=== PATIENT | female | born 1955 | race Caucasian/White ===

== ENCOUNTER 2025-07-21 12:17 | Inpatient (IN) ==
[2025-07-21] MEDS: ONDANSETRON 4 MG/2 ML VIAL IV ONE (12:57)
[2025-07-21] MEDS: 0.9 % SODIUM CHLORIDE 1,000 ML IV ONE (12:58)
[2025-07-21] MEDS: HYDROmorphone 0.5 MG/0.5 ML SYRINGE IV PRN (12:58)
[2025-07-21 13:35] LABS: ALT/SGPT 19 U/L (<40); AST/SGOT 23 U/L (<32); Albumin 3.2 gm/dL (3.2-5.2); Albumin/Globulin Ratio 0.9 (1.0-2.3); Alkaline Phosphatase 113 U/L (39-117); Anion Gap 16.0 (8.0-16.0); Bilirubin,Total 0.5 mg/dL (0.1-1.0); Blood Urea Nitrogen 28 mg/dL (8-23); Calcium 9.3 mg/dL (8.6-10.4); Carbon Dioxide 23 mmol/L (22-30); Chloride 96 mmol/L (96-108); Globulin 3.7 gm/dL (2.2-3.7); Glucose 116 mg/dL (70-105); Potassium 4.1 mmol/L (3.3-5.1); Sodium 135 mmol/L (133-145)
[2025-07-21 13:38] LABS: Basophils # (Auto) 0 K/mcL (0.00-0.30); Basophils % (Auto) 0 % (0.0-2.0); Eosinophils # (Auto) 0.01 K/mcL (0.00-0.70); Eosinophils % (Auto) 0.1 % (0.0-7.0); Hematocrit 49.0 % (34.1-44.9); Hemoglobin 16.7 g/dL (11.2-15.7); Lymphocytes # (Auto) 0.55 K/mcL (1.50-4.80); Lymphocytes % (Auto) 3.4 % (15.5-49.0); Mean Corpuscular HGB Conc 34.1 g/dL (31.0-36.0); Monocytes # (Auto) 0.56 K/mcL (0.10-0.90); Monocytes % (Auto) 3.5 % (1.0-12.0); Neutrophils % (Auto) 92.4 % (38.0-78.0); Platelet Count 189 K/mcL (140-440); RBC 5.27 M/mcL (3.59-5.38); WBC 16.0 K/mcL (4.5-11.0)
[2025-07-21] MEDS: PIPERACILLIN SODIUM/TAZOBACTAM 3.375 GM in DEXTROSE 5% IN WATER 50 ML IV ONE (14:25)
[2025-07-21] MEDS ORDERED: fentaNYL 100 MCG/2 ML VIAL ONE ×2 (14:39→16:32)
[2025-07-21] MEDS ORDERED: SUGAMMADEX SODIUM 200 MG/2 ML VIAL IV ONE (14:40)
[2025-07-21] MEDS ORDERED: PROPOFOL 200 MG/20 ML VIAL IV ONE (14:40)
[2025-07-21 14:41] LABS: INR 1.1 (0.9-1.1); Prothrombin Time 14.9 sec (11.9-14.5)
[2025-07-21 14:52] LABS: Bilirubin,Urine NEGATIVE (Negative); Color,Urine YELLOW; Glucose,Urine (UA) NEGATIVE (Negative); Ketones,Urine TRACE mg/dL (Negative); Leukocyte Esterase,Urine NEGATIVE /uL (Negative); Mucus,Urine Few /hpf; PH,Urine 6.0 (5.0-9.0); Protein,Urine TRACE mg/dL (Negative); Specific Gravity,Urine <= 1.005 (1.000-1.035); Urobilinogen,Urine 0.2 mg/dL
[2025-07-21] MEDS ORDERED: MAGNESIUM SULFATE 2 GM/50 ML BAG IV ONE (15:17)
[2025-07-21] MEDS ORDERED: METOPROLOL TARTRATE 5 MG/5 ML VIAL IV ONE ×2 (15:36→17:23)
[2025-07-21] MEDS ORDERED: PHENYLephrine 1 MG/10 ML SYRINGE (ANEST) ONE ×2 (15:48→17:42)
[2025-07-21] MEDS: ALBUMIN HUMAN 25 GM/100 ML BAG IV ONE (16:00)
[2025-07-21] MEDS ORDERED: ESMOLOL 100 MG/10 ML VIAL IV ONE (16:19)
[2025-07-21] MEDS ORDERED: DEXMEDETOMIDINE HCL 200 MCG/2 ML VIAL ONE (16:30)
[2025-07-21] MEDS ORDERED: 0.9 % SODIUM CHLORIDE 100 ML IV ONE (16:30)
[2025-07-21] MEDS ORDERED: HYDROmorphone 0.5 MG/0.5 ML SYRINGE ONE (16:32)
[2025-07-21] MEDS ORDERED: VASOPRESSIN 20 UNIT/ML VIAL ONE (16:44)
[2025-07-21] MEDS ORDERED: FAMOTIDINE/PF 20 MG/2 ML VIAL IV ONE (16:45)
[2025-07-21] MEDS ORDERED: ROPIVACAINE HCL/PF 30 ML VIAL IJ ONE (17:25)
[2025-07-21] MEDS ORDERED: PROMETHAZINE 25 MG/ML VIAL IV PRN (18:57)
[2025-07-21] MEDS ORDERED: NALOXONE HCL 0.4 MG/ML VIAL IV PRN (18:57)
[2025-07-21 19:55] LABS: ALT/SGPT 20 U/L (<40); AST/SGOT 32 U/L (<32); Albumin 2.7 gm/dL (3.2-5.2); Albumin/Globulin Ratio 1.1 (1.0-2.3); Alkaline Phosphatase 80 U/L (39-117); Anion Gap 10.0 (8.0-16.0); Bilirubin,Total 0.8 mg/dL (0.1-1.0); Blood Urea Nitrogen 25 mg/dL (8-23); Calcium 8.0 mg/dL (8.6-10.4); Carbon Dioxide 21 mmol/L (22-30); Chloride 103 mmol/L (96-108); Globulin 2.4 gm/dL (2.2-3.7); Glucose 118 mg/dL (70-105); Potassium 4.8 mmol/L (3.3-5.1); Sodium 134 mmol/L (133-145)
[2025-07-21] MEDS: AMIODARONE 360 MG in PREMIX 1 BAG IV SCH (20:20)
[2025-07-21] MEDS: 0.9 % SODIUM CHLORIDE 1,000 ML IV SCH (20:22)
[2025-07-21] MEDS: DILTIAZEM 25 MG/5 ML VIAL IV ONE (20:23)
[2025-07-21] MEDS: FAMOTIDINE/PF 20 MG/2 ML VIAL IV SCH (20:24)
[2025-07-21] MEDS: AMIODARONE 360 MG/200 ML BAG IV ONE (21:05)
[2025-07-21] MEDS: PIPERACILLIN SODIUM/TAZOBACTAM 3.375 GM in DEXTROSE 5% IN WATER 100 ML IV SCH (22:17)
[2025-07-21] MEDS: 0.9 % SODIUM CHLORIDE 10 ML SYRINGE IV SCH (22:18)
[2025-07-22] MEDS: AMIODARONE 360 MG in PREMIX 1 BAG IV SCH (01:50)
[2025-07-22] MEDS: AMIODARONE 360 MG/200 ML BAG IV ONE ×2 (03:16→14:14)
[2025-07-22 06:08] LABS: Hematocrit 41.2 % (34.1-44.9); Hemoglobin 13.6 g/dL (11.2-15.7); Mean Corpuscular HGB Conc 33.0 g/dL (31.0-36.0); Platelet Count 177 K/mcL (140-440); RBC 4.27 M/mcL (3.59-5.38); WBC 13.7 K/mcL (4.5-11.0)
[2025-07-22 06:45] LABS: ALT/SGPT 21 U/L (<40); AST/SGOT 31 U/L (<32); Albumin 2.7 gm/dL (3.2-5.2); Albumin/Globulin Ratio 1.0 (1.0-2.3); Alkaline Phosphatase 79 U/L (39-117); Anion Gap 12.0 (8.0-16.0); Bilirubin,Total 0.9 mg/dL (0.1-1.0); Blood Urea Nitrogen 22 mg/dL (8-23); Calcium 7.9 mg/dL (8.6-10.4); Carbon Dioxide 21 mmol/L (22-30); Chloride 105 mmol/L (96-108); Globulin 2.7 gm/dL (2.2-3.7); Glucose 112 mg/dL (70-105); Potassium 4.2 mmol/L (3.3-5.1); Sodium 138 mmol/L (133-145)
[2025-07-22] MEDS: DILTIAZEM 125 MG in DEXTROSE 5% IN WATER 100 ML IV SCH (07:05)
[2025-07-22 08:47] LABS: RBC Morphology NORMAL (Normal)
[2025-07-22] MEDS ORDERED: ALBUTEROL SULFATE 2.5 MG/3 ML NEBULIZER NEB PRN (09:00)
[2025-07-22] MEDS: ENOXAPARIN 40 MG/0.4 ML SYRINGE SQ SCH (09:09)
[2025-07-22] MEDS: ACETAMINOPHEN 1,000 MG/100 ML BAG IV SCH (12:01)
[2025-07-23 05:54] LABS: Basophils # (Auto) 0 K/mcL (0.00-0.30); Basophils % (Auto) 0 % (0.0-2.0); Eosinophils # (Auto) 0 K/mcL (0.00-0.70); Eosinophils % (Auto) 0 % (0.0-7.0); Hematocrit 40.1 % (34.1-44.9); Hemoglobin 13.4 g/dL (11.2-15.7); Lymphocytes # (Auto) 0.86 K/mcL (1.50-4.80); Lymphocytes % (Auto) 5.7 % (15.5-49.0); Mean Corpuscular HGB Conc 33.4 g/dL (31.0-36.0); Monocytes # (Auto) 0.55 K/mcL (0.10-0.90); Monocytes % (Auto) 3.6 % (1.0-12.0); Neutrophils % (Auto) 90.1 % (38.0-78.0); Platelet Count 181 K/mcL (140-440); RBC 4.19 M/mcL (3.59-5.38); WBC 15.2 K/mcL (4.5-11.0)
[2025-07-23 06:20] LABS: ALT/SGPT 24 U/L (<40); AST/SGOT 36 U/L (<32); Albumin 2.4 gm/dL (3.2-5.2); Albumin/Globulin Ratio 0.9 (1.0-2.3); Alkaline Phosphatase 85 U/L (39-117); Anion Gap 10.0 (8.0-16.0); Bilirubin,Direct 0.5 mg/dL (<0.3); Bilirubin,Total 0.7 mg/dL (0.1-1.0); Blood Urea Nitrogen 35 mg/dL (8-23); Calcium 7.7 mg/dL (8.6-10.4); Carbon Dioxide 20 mmol/L (22-30); Chloride 109 mmol/L (96-108); Globulin 2.8 gm/dL (2.2-3.7); Glucose 94 mg/dL (70-105); Phosphorous 3.2 mg/dL (2.5-4.5); Potassium 4.2 mmol/L (3.3-5.1); Sodium 139 mmol/L (133-145); Triglycerides 80 mg/dL (<150); Uric Acid 3.3 mg/dL (2.5-8.0)
[2025-07-24 06:34] LABS: Basophils # (Auto) 0 K/mcL (0.00-0.30); Basophils % (Auto) 0 % (0.0-2.0); Eosinophils # (Auto) 0.02 K/mcL (0.00-0.70); Eosinophils % (Auto) 0.2 % (0.0-7.0); Hematocrit 45.0 % (34.1-44.9); Hemoglobin 14.7 g/dL (11.2-15.7); Lymphocytes # (Auto) 1.23 K/mcL (1.50-4.80); Lymphocytes % (Auto) 9.3 % (15.5-49.0); Mean Corpuscular HGB Conc 32.7 g/dL (31.0-36.0); Monocytes # (Auto) 0.41 K/mcL (0.10-0.90); Monocytes % (Auto) 3.1 % (1.0-12.0); Neutrophils % (Auto) 86.8 % (38.0-78.0); Platelet Count 204 K/mcL (140-440); RBC 4.67 M/mcL (3.59-5.38); WBC 13.3 K/mcL (4.5-11.0)
[2025-07-24 06:46] LABS: ALT/SGPT 28 U/L (<40); AST/SGOT 39 U/L (<32); Albumin 2.4 gm/dL (3.2-5.2); Albumin/Globulin Ratio 0.8 (1.0-2.3); Alkaline Phosphatase 101 U/L (39-117); Anion Gap 8.0 (8.0-16.0); Bilirubin,Direct 0.3 mg/dL (<0.3); Bilirubin,Total 0.4 mg/dL (0.1-1.0); Blood Urea Nitrogen 35 mg/dL (8-23); Calcium 7.7 mg/dL (8.6-10.4); Carbon Dioxide 22 mmol/L (22-30); Chloride 111 mmol/L (96-108); Globulin 3.0 gm/dL (2.2-3.7); Glucose 71 mg/dL (70-105); Phosphorous 2.6 mg/dL (2.5-4.5); Potassium 4.0 mmol/L (3.3-5.1); Sodium 141 mmol/L (133-145); Triglycerides 126 mg/dL (<150); Uric Acid 3.1 mg/dL (2.5-8.0)
[2025-07-24] MEDS: PYRIDOSTIGMINE BROMIDE 10 MG/2 ML AMPUL IV SCH (20:13)
[2025-07-24] MEDS: ATORVASTATIN 40 MG TABLET PO SCH (20:13)
[2025-07-25 07:46] LABS: ALT/SGPT 27 U/L (<40); AST/SGOT 36 U/L (<32); Albumin 2.1 gm/dL (3.2-5.2); Albumin/Globulin Ratio 0.8 (1.0-2.3); Alkaline Phosphatase 92 U/L (39-117); Anion Gap 6.0 (8.0-16.0); Bilirubin,Direct 0.3 mg/dL (<0.3); Bilirubin,Total 0.4 mg/dL (0.1-1.0); Blood Urea Nitrogen 22 mg/dL (8-23); Calcium 7.3 mg/dL (8.6-10.4); Carbon Dioxide 21 mmol/L (22-30); Chloride 115 mmol/L (96-108); Globulin 2.6 gm/dL (2.2-3.7); Glucose 63 mg/dL (70-105); Phosphorous 2.3 mg/dL (2.5-4.5); Potassium 3.6 mmol/L (3.3-5.1); Sodium 142 mmol/L (133-145); Triglycerides 156 mg/dL (<150); Uric Acid 2.1 mg/dL (2.5-8.0)
[2025-07-25 08:05] LABS: Basophils # (Auto) 0 K/mcL (0.00-0.30); Basophils % (Auto) 0 % (0.0-2.0); Eosinophils # (Auto) 0.08 K/mcL (0.00-0.70); Eosinophils % (Auto) 0.7 % (0.0-7.0); Hematocrit 40.6 % (34.1-44.9); Hemoglobin 13.1 g/dL (11.2-15.7); Lymphocytes # (Auto) 0.98 K/mcL (1.50-4.80); Lymphocytes % (Auto) 8.5 % (15.5-49.0); Mean Corpuscular HGB Conc 32.3 g/dL (31.0-36.0); Monocytes # (Auto) 0.24 K/mcL (0.10-0.90); Monocytes % (Auto) 2.1 % (1.0-12.0); Neutrophils % (Auto) 88.0 % (38.0-78.0); Platelet Count 200 K/mcL (140-440); RBC 4.15 M/mcL (3.59-5.38); WBC 11.5 K/mcL (4.5-11.0)
[2025-07-25] MEDS: METOPROLOL TARTRATE 5 MG/5 ML VIAL IV SCH (08:35)
[2025-07-25] MEDS: ALBUMIN HUMAN 12.5 GM/50 ML VIAL IV ONE (12:20)
[2025-07-25] MEDS: FUROSEMIDE 40 MG/4 ML VIAL IV ONE (12:44)
[2025-07-25] MEDS: 0.9 % SODIUM CHLORIDE 1,000 ML IV SCH (16:17)
[2025-07-25] MEDS: POLYETHYLENE GLYCOL 3350 17 GM PACKET PO SCH (22:28)
[2025-07-26 05:29] LABS: Basophils # (Auto) 0 K/mcL (0.00-0.30); Basophils % (Auto) 0 % (0.0-2.0); Eosinophils # (Auto) 0.13 K/mcL (0.00-0.70); Eosinophils % (Auto) 1.3 % (0.0-7.0); Hematocrit 39.4 % (34.1-44.9); Hemoglobin 13.0 g/dL (11.2-15.7); Lymphocytes # (Auto) 1.18 K/mcL (1.50-4.80); Lymphocytes % (Auto) 12.2 % (15.5-49.0); Mean Corpuscular HGB Conc 33.0 g/dL (31.0-36.0); Monocytes # (Auto) 0.21 K/mcL (0.10-0.90); Monocytes % (Auto) 2.2 % (1.0-12.0); Neutrophils % (Auto) 83.7 % (38.0-78.0); Platelet Count 199 K/mcL (140-440); RBC 4.10 M/mcL (3.59-5.38); WBC 9.7 K/mcL (4.5-11.0)
[2025-07-26 05:53] LABS: ALT/SGPT 21 U/L (<40); AST/SGOT 32 U/L (<32); Albumin 2.2 gm/dL (3.2-5.2); Albumin/Globulin Ratio 0.9 (1.0-2.3); Alkaline Phosphatase 95 U/L (39-117); Anion Gap 7.0 (8.0-16.0); Bilirubin,Direct 0.3 mg/dL (<0.3); Bilirubin,Total 0.5 mg/dL (0.1-1.0); Blood Urea Nitrogen 15 mg/dL (8-23); Calcium 7.5 mg/dL (8.6-10.4); Carbon Dioxide 24 mmol/L (22-30); Chloride 110 mmol/L (96-108); Globulin 2.4 gm/dL (2.2-3.7); Glucose 63 mg/dL (70-105); Phosphorous 2.3 mg/dL (2.5-4.5); Potassium 3.3 mmol/L (3.3-5.1); Sodium 141 mmol/L (133-145); Triglycerides 142 mg/dL (<150); Uric Acid 2.2 mg/dL (2.5-8.0)
[2025-07-26] MEDS: METOPROLOL TARTRATE 25 MG TABLET PO SCH (21:22)
[2025-07-26] MEDS: POTASSIUM CHLORIDE 20 MEQ TABLET PO SCH (21:22)
[2025-07-27 06:33] LABS: Basophils # (Auto) 0 K/mcL (0.00-0.30); Basophils % (Auto) 0 % (0.0-2.0); Eosinophils # (Auto) 0.13 K/mcL (0.00-0.70); Eosinophils % (Auto) 1.3 % (0.0-7.0); Hematocrit 36.7 % (34.1-44.9); Hemoglobin 12.2 g/dL (11.2-15.7); Lymphocytes # (Auto) 1.11 K/mcL (1.50-4.80); Lymphocytes % (Auto) 11.3 % (15.5-49.0); Mean Corpuscular HGB Conc 33.2 g/dL (31.0-36.0); Monocytes # (Auto) 0.23 K/mcL (0.10-0.90); Monocytes % (Auto) 2.3 % (1.0-12.0); Neutrophils % (Auto) 84.4 % (38.0-78.0); Platelet Count 211 K/mcL (140-440); RBC 3.82 M/mcL (3.59-5.38); WBC 9.8 K/mcL (4.5-11.0)
[2025-07-27 07:00] LABS: ALT/SGPT 16 U/L (<40); AST/SGOT 20 U/L (<32); Albumin 2.1 gm/dL (3.2-5.2); Albumin/Globulin Ratio 0.9 (1.0-2.3); Alkaline Phosphatase 71 U/L (39-117); Anion Gap 6.0 (8.0-16.0); Bilirubin,Direct 0.3 mg/dL (<0.3); Bilirubin,Total 0.5 mg/dL (0.1-1.0); Blood Urea Nitrogen 12 mg/dL (8-23); Calcium 7.4 mg/dL (8.6-10.4); Carbon Dioxide 23 mmol/L (22-30); Chloride 109 mmol/L (96-108); Globulin 2.4 gm/dL (2.2-3.7); Glucose 79 mg/dL (70-105); Phosphorous 1.8 mg/dL (2.5-4.5); Potassium 3.7 mmol/L (3.3-5.1); Sodium 138 mmol/L (133-145); Triglycerides 155 mg/dL (<150); Uric Acid 1.9 mg/dL (2.5-8.0)
[2025-07-27] MEDS: FUROSEMIDE 40 MG/4 ML VIAL IV ONE (08:58)
[2025-07-27] MEDS: POTASSIUM PHOSPHATE 40 MEQ in DEXTROSE 5% IN WATER 500 ML IV ONE ×2 (09:37→15:39)
[2025-07-27] MEDS: ONDANSETRON 4 MG/2 ML VIAL IV PRN (11:40)
[2025-07-27] MEDS: APIXABAN 5 MG TABLET PO SCH (21:46)
[2025-07-28 06:18] LABS: Basophils # (Auto) 0.01 K/mcL (0.00-0.30); Basophils % (Auto) 0.1 % (0.0-2.0); Eosinophils # (Auto) 0.16 K/mcL (0.00-0.70); Eosinophils % (Auto) 1.5 % (0.0-7.0); Hematocrit 36.6 % (34.1-44.9); Hemoglobin 12.1 g/dL (11.2-15.7); Lymphocytes # (Auto) 1.02 K/mcL (1.50-4.80); Lymphocytes % (Auto) 9.5 % (15.5-49.0); Mean Corpuscular HGB Conc 33.1 g/dL (31.0-36.0); Monocytes # (Auto) 0.40 K/mcL (0.10-0.90); Monocytes % (Auto) 3.7 % (1.0-12.0); Neutrophils % (Auto) 84.6 % (38.0-78.0); Platelet Count 227 K/mcL (140-440); RBC 3.84 M/mcL (3.59-5.38); WBC 10.7 K/mcL (4.5-11.0)
[2025-07-28 06:49] LABS: ALT/SGPT 15 U/L (<40); AST/SGOT 22 U/L (<32); Albumin 2.1 gm/dL (3.2-5.2); Albumin/Globulin Ratio 0.8 (1.0-2.3); Alkaline Phosphatase 74 U/L (39-117); Anion Gap 6.0 (8.0-16.0); Bilirubin,Direct 0.2 mg/dL (<0.3); Bilirubin,Total 0.4 mg/dL (0.1-1.0); Blood Urea Nitrogen 9 mg/dL (8-23); Calcium 7.6 mg/dL (8.6-10.4); Carbon Dioxide 24 mmol/L (22-30); Chloride 106 mmol/L (96-108); Globulin 2.6 gm/dL (2.2-3.7); Glucose 87 mg/dL (70-105); Phosphorous 2.4 mg/dL (2.5-4.5); Potassium 4.4 mmol/L (3.3-5.1); Sodium 136 mmol/L (133-145); Triglycerides 134 mg/dL (<150); Uric Acid 1.4 mg/dL (2.5-8.0)
[2025-07-28] MEDS ORDERED: ONDANSETRON 4 MG ODT TABLET SL PRN (13:59)
[2025-07-28] MEDS ORDERED: ACETAMINOPHEN 325 MG TABLET PO PRN (13:59)
[2025-07-28] MEDS ORDERED: metroNIDAZOLE 500 MG/100 ML BAG IV SCH (14:15)
[2025-07-28] MEDS: FAMOTIDINE 20 MG TABLET PO SCH (20:30)
[2025-07-28] MEDS: CIPROFLOXACIN 500 MG TABLET PO SCH (20:30)
[2025-07-29 07:13] LABS: ALT/SGPT 17 U/L (<40); AST/SGOT 26 U/L (<32); Albumin 2.2 gm/dL (3.2-5.2); Albumin/Globulin Ratio 0.8 (1.0-2.3); Alkaline Phosphatase 79 U/L (39-117); Anion Gap 6.0 (8.0-16.0); Bilirubin,Direct 0.3 mg/dL (<0.3); Bilirubin,Total 0.5 mg/dL (0.1-1.0); Blood Urea Nitrogen 8 mg/dL (8-23); Calcium 8.0 mg/dL (8.6-10.4); Carbon Dioxide 26 mmol/L (22-30); Chloride 104 mmol/L (96-108); Globulin 2.8 gm/dL (2.2-3.7); Glucose 101 mg/dL (70-105); Phosphorous 2.1 mg/dL (2.5-4.5); Potassium 4.4 mmol/L (3.3-5.1); Sodium 136 mmol/L (133-145); Triglycerides 131 mg/dL (<150); Uric Acid 1.7 mg/dL (2.5-8.0)
[2025-07-29 16:33] VITALS: TEMP 98.5; O2SAT 96
== END 2025-07-29 16:00 | DRG 907 ==
LOC: ED 12:17 → SUR 14:47 → ICU 18:45 → MEDSUR 07-25 13:35
PROVIDERS: ADMIT Internal Medicine; ATTEND Surgery

== ENCOUNTER 2025-08-26 11:11 | Inpatient (IN) ==
[2025-08-26] MEDS: PIPERACILLIN SODIUM/TAZOBACTAM 3.375 GM in DEXTROSE 5% IN WATER 50 ML IV ONE (13:25)
[2025-08-26] MEDS ORDERED: IOPAMIDOL 100 ML BOTTLE IV ONE (13:28)
[2025-08-26] MEDS: 0.9 % SODIUM CHLORIDE 1,000 ML IV SCH (13:30)
[2025-08-26 13:46] LABS: Basophils # (Auto) 0.04 K/mcL (0.00-0.30); Basophils % (Auto) 0.4 % (0.0-2.0); Eosinophils # (Auto) 0.10 K/mcL (0.00-0.70); Eosinophils % (Auto) 1.0 % (0.0-7.0); Hematocrit 36.2 % (34.1-44.9); Hemoglobin 11.9 g/dL (11.2-15.7); Lymphocytes # (Auto) 1.58 K/mcL (1.50-4.80); Lymphocytes % (Auto) 16.2 % (15.5-49.0); Mean Corpuscular HGB Conc 32.9 g/dL (31.0-36.0); Monocytes # (Auto) 0.82 K/mcL (0.10-0.90); Monocytes % (Auto) 8.4 % (1.0-12.0); Neutrophils % (Auto) 73.8 % (38.0-78.0); Platelet Count 453 K/mcL (140-440); RBC 3.87 M/mcL (3.59-5.38); WBC 9.8 K/mcL (4.5-11.0)
[2025-08-26 14:20] LABS: ALT/SGPT < 5 U/L (<40); AST/SGOT 15 U/L (<32); Albumin 3.0 gm/dL (3.2-5.2); Albumin/Globulin Ratio 0.9 (1.0-2.3); Alkaline Phosphatase 53 U/L (39-117); Anion Gap 11.0 (8.0-16.0); Bilirubin,Direct 0.2 mg/dL (<0.3); Bilirubin,Total 0.3 mg/dL (0.1-1.0); Blood Urea Nitrogen 13 mg/dL (8-23); C-Reactive Protein 3.16 mg/dL (0.03-0.80); Calcium 9.2 mg/dL (8.6-10.4); Carbon Dioxide 28 mmol/L (22-30); Chloride 99 mmol/L (96-108); Globulin 3.4 gm/dL (2.2-3.7); Glucose 108 mg/dL (70-105); Phosphorous 2.8 mg/dL (2.5-4.5); Potassium 3.2 mmol/L (3.3-5.1); Sodium 138 mmol/L (133-145); Triglycerides 75 mg/dL (<150); Uric Acid 6.1 mg/dL (2.5-8.0)
[2025-08-26] MEDS: METOCLOPRAMIDE 10 MG/2 ML VIAL IV SCH (17:04)
[2025-08-26 19:07] LABS: Bilirubin,Urine Negative (Negative); Color,Urine STRAW; Glucose,Urine (UA) Negative (Negative); Ketones,Urine Negative (Negative); Leukocyte Esterase,Urine 25 /uL (Negative); PH,Urine 7.0 (5.0-9.0); Protein,Urine Negative (Negative); Specific Gravity,Urine 1.033 (1.000-1.035); Urobilinogen,Urine Negative
[2025-08-26] MEDS: PIPERACILLIN SODIUM/TAZOBACTAM 3.375 GM in DEXTROSE 5% IN WATER 100 ML IV SCH (19:37)
[2025-08-26] MEDS: ONDANSETRON 4 MG/2 ML VIAL IV PRN (21:54)
[2025-08-26] MEDS: HYDROmorphone 0.5 MG/0.5 ML SYRINGE IV PRN (22:01)
[2025-08-26] MEDS: APIXABAN 5 MG TABLET PO SCH (22:01)
[2025-08-28 06:54] LABS: INR 1.4 (0.9-1.1); Partial Thromboplastin Time 36.0 sec (20.0-37.0); Prothrombin Time 18.2 sec (11.9-14.5)
[2025-08-28] MEDS: LACTOBACILLUS 1 CAPSULE PO SCH (09:06)
[2025-08-29] MEDS: fentaNYL 100 MCG/2 ML VIAL IV ONE (11:42)
[2025-08-29] MEDS: MIDAZOLAM 2 MG/2 ML VIAL IV ONE (11:43)
[2025-08-30 06:59] LABS: ALT/SGPT < 5 U/L (<40); AST/SGOT 14 U/L (<32); Albumin 2.4 gm/dL (3.2-5.2); Albumin/Globulin Ratio 0.9 (1.0-2.3); Alkaline Phosphatase 40 U/L (39-117); Anion Gap 11.0 (8.0-16.0); Bilirubin,Direct < 0.2 mg/dL (0-0.3); Bilirubin,Total 0.2 mg/dL (0.1-1.0); Blood Urea Nitrogen 3 mg/dL (8-23); Calcium 7.4 mg/dL (8.6-10.4); Carbon Dioxide 23 mmol/L (22-30); Chloride 108 mmol/L (96-108); Globulin 2.7 gm/dL (2.2-3.7); Glucose 81 mg/dL (70-105); Phosphorous 2.7 mg/dL (2.5-4.5); Potassium 2.4 mmol/L (3.3-5.1); Sodium 142 mmol/L (133-145); Triglycerides 79 mg/dL (<150); Uric Acid 2.6 mg/dL (2.5-8.0)
[2025-08-30 07:01] LABS: Basophils # (Auto) 0.05 K/mcL (0.00-0.30); Basophils % (Auto) 0.6 % (0.0-2.0); Eosinophils # (Auto) 0.28 K/mcL (0.00-0.70); Eosinophils % (Auto) 3.6 % (0.0-7.0); Hematocrit 30.3 % (34.1-44.9); Hemoglobin 10.1 g/dL (11.2-15.7); Lymphocytes # (Auto) 1.89 K/mcL (1.50-4.80); Lymphocytes % (Auto) 24.0 % (15.5-49.0); Mean Corpuscular HGB Conc 33.3 g/dL (31.0-36.0); Monocytes # (Auto) 0.55 K/mcL (0.10-0.90); Monocytes % (Auto) 7.0 % (1.0-12.0); Neutrophils % (Auto) 64.5 % (38.0-78.0); Platelet Count 363 K/mcL (140-440); RBC 3.24 M/mcL (3.59-5.38); WBC 7.9 K/mcL (4.5-11.0)
[2025-08-30] MEDS: POTASSIUM CHLORIDE 10 MEQ/100 ML BAG IV SCH (07:52)
[2025-08-30] MEDS: POTASSIUM CHLORIDE 20 MEQ in DEXTROSE 5% IN WATER 250 ML IV ONE (07:56)
[2025-08-30] MEDS ORDERED: POTASSIUM CHLORIDE 20 MEQ in DEXTROSE 5% IN WATER 250 ML IV ONE (09:02)
[2025-08-30] MEDS: METHOCARBAMOL 500 MG TABLET PO PRN (21:19)
[2025-08-31] MEDS: METOPROLOL TARTRATE 25 MG TABLET PO SCH (09:05)
[2025-08-31] MEDS: APIXABAN 5 MG TABLET PO SCH (09:05)
[2025-09-01 07:09] LABS: Basophils # (Auto) 0.05 K/mcL (0.00-0.30); Basophils % (Auto) 0.7 % (0.0-2.0); Eosinophils # (Auto) 0.22 K/mcL (0.00-0.70); Eosinophils % (Auto) 3.2 % (0.0-7.0); Hematocrit 32.0 % (34.1-44.9); Hemoglobin 10.6 g/dL (11.2-15.7); Lymphocytes # (Auto) 1.95 K/mcL (1.50-4.80); Lymphocytes % (Auto) 27.9 % (15.5-49.0); Mean Corpuscular HGB Conc 33.1 g/dL (31.0-36.0); Monocytes # (Auto) 0.62 K/mcL (0.10-0.90); Monocytes % (Auto) 8.9 % (1.0-12.0); Neutrophils % (Auto) 59.2 % (38.0-78.0); Platelet Count 354 K/mcL (140-440); RBC 3.41 M/mcL (3.59-5.38); WBC 7.0 K/mcL (4.5-11.0)
[2025-09-01 07:41] LABS: ALT/SGPT 6 U/L (<40); AST/SGOT 18 U/L (<32); Albumin 2.5 gm/dL (3.2-5.2); Albumin/Globulin Ratio 0.9 (1.0-2.3); Alkaline Phosphatase 46 U/L (39-117); Anion Gap 11.0 (8.0-16.0); Bilirubin,Total 0.3 mg/dL (0.1-1.0); Blood Urea Nitrogen 3 mg/dL (8-23); Calcium 7.5 mg/dL (8.6-10.4); Carbon Dioxide 27 mmol/L (22-30); Chloride 104 mmol/L (96-108); Globulin 2.8 gm/dL (2.2-3.7); Glucose 82 mg/dL (70-105); Potassium 2.7 mmol/L (3.3-5.1); Sodium 142 mmol/L (133-145)
[2025-09-01] MEDS ORDERED: IOPAMIDOL 100 ML BOTTLE IV ONE (08:21)
[2025-09-01] MEDS: POTASSIUM CHLORIDE 20 MEQ TABLET PO SCH (08:45)
[2025-09-01 19:28] VITALS: TEMP 98.6
[2025-09-02 06:14] LABS: Basophils # (Auto) 0.04 K/mcL (0.00-0.30); Basophils % (Auto) 0.6 % (0.0-2.0); Eosinophils # (Auto) 0.28 K/mcL (0.00-0.70); Eosinophils % (Auto) 4.5 % (0.0-7.0); Hematocrit 31.6 % (34.1-44.9); Hemoglobin 10.4 g/dL (11.2-15.7); Lymphocytes # (Auto) 1.73 K/mcL (1.50-4.80); Lymphocytes % (Auto) 27.9 % (15.5-49.0); Mean Corpuscular HGB Conc 32.9 g/dL (31.0-36.0); Monocytes # (Auto) 0.53 K/mcL (0.10-0.90); Monocytes % (Auto) 8.5 % (1.0-12.0); Neutrophils % (Auto) 58.3 % (38.0-78.0); Platelet Count 350 K/mcL (140-440); RBC 3.36 M/mcL (3.59-5.38); WBC 6.2 K/mcL (4.5-11.0)
[2025-09-02 06:46] LABS: ALT/SGPT 6 U/L (<40); AST/SGOT 18 U/L (<32); Albumin 2.5 gm/dL (3.2-5.2); Albumin/Globulin Ratio 0.9 (1.0-2.3); Alkaline Phosphatase 43 U/L (39-117); Anion Gap 11.0 (8.0-16.0); Bilirubin,Total 0.3 mg/dL (0.1-1.0); Blood Urea Nitrogen 3 mg/dL (8-23); Calcium 7.7 mg/dL (8.6-10.4); Carbon Dioxide 27 mmol/L (22-30); Chloride 105 mmol/L (96-108); Globulin 2.9 gm/dL (2.2-3.7); Glucose 77 mg/dL (70-105); Potassium 3.2 mmol/L (3.3-5.1); Sodium 143 mmol/L (133-145)
[2025-09-02 08:41] VITALS: O2SAT 96
[2025-09-02] MEDS: POTASSIUM CHLORIDE 20 MEQ PACKET PO ONE (10:51)
== END 2025-09-02 11:07 | DRG 871 ==
LOC: MEDSUR 11:37 → INTOOBSV 11:37 → MEDSUR 09-01 16:40
PROVIDERS: ADMIT Family Medicine Adult Medicine; ATTEND Family Medicine Adult Medicine